=== PATIENT | female | born 1995 | race Caucasian/White ===

== ENCOUNTER 2024-07-20 10:23 | Inpatient (IN) | payer MEDICAID, SELFPAY ==
[2024-07-17 11:37] LABS: Basophils % (Auto) 0 % (0-2.5); Eosinophils # (Auto) 0.1 Thou/mm3 (0.0-0.5); Eosinophils % (Auto) 1 % (0-10); Hematocrit 34.7 % (36.0-46.0); Hemoglobin 11.9 g/dL (12.0-16.0); Immature Granulocytes % (Auto) 1 % (0-0); Immature Granulocytes Auto 0.04 Thou/mm3 (0.00-0.00); Lymphocytes # (Auto) 1.4 Thou/mm3 (1.0-4.8); Lymphocytes % (Auto) 17 % (10-50); Mean Corpuscular HGB Conc 34.3 g/dl (31.0-37.0); Mean Corpuscular Hemoglobin 30.4 pg (25.0-35.0); Mean Corpuscular Volume 89 fL (80-100); Monocytes # (Auto) 0.3 Thou/mm3 (0.0-0.8); Monocytes % (Auto) 3 % (0-12); Neutrophils # (Auto) 6.4 Thou/mm3 (1.8-7.7); Neutrophils % (Auto) 78 % (37-80); Nucleated Red Blood Cell % 0 /100 WBC (0); Platelet Count 223 Thou/mm3 (140-440); RDW Standard Deviation 39.4 fL (36.4-46.3); Red Blood Count 3.91 Miln/mm3 (4.00-5.20); White Blood Count 8.3 Thou/mm3 (3.6-11.0)
[2024-07-17 12:15] LABS: Alanine Aminotransferase 30 U/L (10-49); Albumin, Serum 3.9 gm/dL (3.5-5.0); Albumin/Globulin Ratio 1.5 (1.2-2.2); Alkaline Phosphatase 254 U/L (46-116); Anion Gap 9 (7-16); Aspartate Amino Transferase 22 U/L (0-34); BUN/Creatinine Ratio 12 Ratio (12-20); Bilirubin,Total 0.5 mg/dL (0.3-1.2); Blood Urea Nitrogen 7 mg/dL (9-23); Calcium 9.4 mg/dL (8.3-10.6); Calcium (Corrected) 9.5 mg/dL (8.5-10.1); Chloride 104 mMol/L (98-107); Creatinine (Component) 0.6 mg/dL (0.6-1.3); Globulin 2.6 gm/dL (2.3-3.5); Glucose 118 mg/dL (74-106); Osmolality,Calculated 274 (275-295); Potassium 3.6 mMol/L (3.4-5.1); Sodium 138 mMol/L (136-145); Total Protein 6.5 gm/dL (5.7-8.2); eGFR > 60 See Note
[2024-07-17 12:46] LABS: Syphilis Nonreactive (Nonreactive)
[2024-07-17 13:58] LABS: INR 0.9 (0.9-1.3); Partial Thromboplastin Time 26.4 Seconds (22.0-36.0); Prothrombin Time 10.2 Seconds (9.0-12.2)
[2024-07-20] VITALS (12 sets, daily range): BP systolic 108–132; BP diastolic 69–89; PULSE 79–107; RESP 12–20; TEMP 36.5–36.8; O2SAT 95–100; BMI 29.9
--- NOTE | 2024-07-20 08:11 | ESHP_ITS ---
RE: ROBERTO HERNÁNDEZ : 1995 DATE OF ADMISSION:07/20/2024 HISTORY OF PRESENT ILLNESS: This is a 29-year-old 2 para 1-0-0-1 with due date of 07/26/2024 with intrauterine at 39 weeks and 1 day, who presents for repeat delivery. The patient reports normal movement. She denies any leaking or bleeding. Her care was complicated by an abnormal cell-free DNA test in the first trimester, which suggested inconclusive for sex chromosome aneuploidies. The patient was referred to maternal medicine and the maternal medicine ultrasound showed normal anatomy and a normal male fetus. The maternal chromosome SNP microarray showed a normal 46XX. The patient's was also complicated by white coat hypertension and marijuana use. MEDICATIONS: 1. multivitamin 1 p.o. daily. 2. Aspirin 81 mg 1 p.o. daily. SOCIAL HISTORY: She is . She denies any alcohol or drug use or smoking. PAST MEDICAL HISTORY: Hypothyroidism, however, normal thyroid function tests throughout her . FAMILY HISTORY: Breast cancer and hypertension. OBSTETRIC HISTORY: 09/2022, 40 weeks' delivery, 7 pound 5 ounce female, no complications. PAST SURGICAL HISTORY: delivery in 2022. REVIEW OF SYSTEMS: She denies any chest pain, palpitations, cough, fever, shortness of breath or lower extremity pain. She denies any headache, change in vision or right upper quadrant pain. PHYSICAL EXAMINATION: VITAL SIGNS: Blood pressure is 128/76, heart rate 88, respirations 18, and temperature is 98.2. HEENT: Oropharynx and sclerae are clear. LUNGS: Clear to auscultation bilaterally. HEART: Regular rate and rhythm. ABDOMEN: Gravid term size. Old Pfannenstiel scar noted. PELVIC: Deferred. EXTREMITIES: Nontender. SKIN: No gross rashes or lesions. NEUROLOGIC: No focal deficit. ASSESSMENT: Intrauterine at 39 weeks' gestation, previous delivery, elected to repeat delivery, multiparity, desires voluntary sterilization. PLAN: Repeat delivery and bilateral tubal ligation. Informed consent was obtained. The patient was made aware of the risks, complications, alternatives, and benefits of the proposed procedure and she agrees. She is aware of the failure rate and the increased risk of tubal ectopic gestation if occurs. She is aware that vasectomy has a lower failure rate, but her male partner declines that option. The patient is aware of the reversible methods of control, but she declines those options. DT: 12:51:25 TT: 15:55:00 Ref: [id number] - TID: [id number] MTDD
[2024-07-20] MEDS: METOCLOPRAMIDE INJ 5 MG/ML VIAL 2 ML 10 MG IVP (14:39)
[2024-07-20] MEDS: ceFAZolin/D5W 2 GM IV 2 GM/100 ML BAG IV (14:40)
[2024-07-20] MEDS: FAMOTIDINE INJ 10 MG/ML VIAL 2 ML 20 MG IV (14:40)
--- NOTE | 2024-07-20 15:58 | PD.LDDELS ---
Data (Flynn) Data : 2 Para: 1 Term: 1 : 0 : 0 Delivery Data (Flynn) Labor Data ROM Date: 07/20/24 ROM Time: 15:31 Rupture Type: AROM Amniotic Fluid: Clear Delivery Data EDC: 07/27/24 EDC calculated by:: LMP/early US confirmation Labor Onset Stage 1 Date: 07/20/24 Labor Onset Stage 1 Time: 15 Labor Onset Stage 2 Date: 07/20/24 Labor Onset Stage 2 Time: 15: Delivery Date: 07/20/24 Delivery Time: 15: Placenta Delivery Date: 07/20/24 Placenta Delivery Time: 15 Delivered by: Hussein Sosa Delivery nurse: Galina Alexandre Other staff at delivery: Nursery Nurse Other staff at delivery: KARLA Other staff at delivery: Li Sheridan Other staff at delivery: Eric Smith Delivery Method Delivery: Delivery Type: Repeat Presentation: Vertex Position: OA Anesthesia Type Primary Anesthesia: Spinal Placenta Placenta Delivery: Manual EBL Estimated blood loss (ml): 500 Umbilical Cord Nuchal Cord: x1 Tightly Additional Procedures Bilateral salpingectomy Complications Complications: None Data (Flynn) Data Gender: Male Infant Weight Grams: 3200 1 Minute Total: 9 5 Minute Total: 9
--- NOTE | 2024-07-20 16:04 | ESDS_ITS ---
DS: Providers Provider Date of admission: 07/20/24 10:23 Primary care physician: Physician No Primary/Family Admitting Provider: Hussein Sosa MD Attending Provider on Admission: Husseni Sosa MD Attending Provider on DC: Hussein Sosa MD Discharging Provider: Hussein Sosa MD DS: Diagnosis Problem List Completed Was Problem List Reviewed/Reconciled?: Yes Summary/Hosp Course Peripartum Data Procedures: Procedures Operation Date: 07/20/24 12:45 <No data on this case meets the specified criteria> Time Spent with Patient Time attestation: Total time spent providing and/or coordinating discharge services: Exam Vital Signs Pulse BP 88 119/73 07/20/24 10:38 07/20/24 10:38 Discharge Plan Plan Patient Disposition: HOME (Self Care) Patient condition on transfer: Stable Prescriptions/Referrals Prescriptions/Med Rec: New hydrocodone-acetaminophen 5-325 mg tablet 1 tab PO Q6H MDD 4 PRN (Reason: pain) Qty: 20 0RF ibuprofen 600 mg tablet 600 mg PO Q6H PRN (Reason: pain) Qty: 30 0RF No Action Vitamin 27 mg iron- 800 mcg Tablet 1 tab PO QDAY Referrals: No Primary/Family,Physician [Primary Care Provider] - Patient/Caregiver Discharge Instructions Discharge Activity: activity as tolerated Other Discharge Activity Instructions:: Follow up office 1 weeks. Education Materials: C Section Dc Print Language: Romansh Stand Alone Forms: Vangie Award Info., Patient Portal Info Letter Discharge Order Discharge Orders: Discharge (Routine); Ordered 07/22/24 Ordered By: Hussein Sosa Planned Discharge Date 07/22/24
[2024-07-20] MEDS: OXYTOCIN in NS 20 units 20 UNIT/1,000 ML BAG 125 UNIT IV (16:37)
--- NOTE | 2024-07-20 19:15 | ESOP_ITS ---
RE: ROBERTO HERNÁNDEZ : 1995 DATE OF OPERATION: 07/20/2024 PREOPERATIVE DIAGNOSES: 1. Intrauterine at 39 weeks. 2. Previous delivery, elects to repeat cesarian delivery. 3. Multiparity, desires voluntary sterilization. POSTOPERATIVE DIAGNOSES: 1. Intrauterine at 39 weeks. 2. Previous delivery, elects to repeat cesarian delivery. 3. Multiparity, desires voluntary sterilization. PROCEDURE PERFORMED: Repeat low transverse section via Pfannenstiel skin incision, bilateral salpingectomy. SURGEON: Hussein Sosa DO CUSTOMER SERVICE CASHIER: JENNIFER Bobby ANESTHESIA: Spinal. ANESTHESIOLOGIST: Eric Smith CRNA ESTIMATED BLOOD LOSS: 500 mL. COMPLICATIONS: None. COUNTS: Correct. PATHOLOGY: Left and right fallopian tube. FINDINGS: A live male infant, cephalic presentation, clear amniotic fluid. Apgars 9/9, weight 3200 g, gender is male. Normal-appearing uterus, ovaries and fallopian tubes. DESCRIPTION OF PROCEDURE: After appropriate informed consent was obtained, the patient was made aware of the risks, complications, alternatives and benefits of the proposed procedure. She was taken to the operating room where she underwent induction of spinal anesthesia. She was placed in the dorsal lithotomy position. She was prepped and draped in a usual sterile fashion. A time-out was performed. A Pfannenstiel skin incision was made with scalpel, carried through to the underlying layer of fascia with the Bovie. The fascia was nicked in the midline, incision extended bilaterally with the Bovie. The inferior aspect of the fascia incision was grasped with Danni clamps and elevated. The underlying rectus muscle was dissected off with the Bovie. The rectus muscles were in the midline and the peritoneum identified between two Anglin clamps and entered sharply with the Metzenbaum scissors. The incision was extended superiorly and inferiorly with good visualization of the bladder. The bladder blade was then inserted. The vesicouterine peritoneum was incised transversely and bladder flap created digitally. The bladder blade was reinserted. Low uterine segment incised in transverse fascia with scalpel. The incision was extended bilaterally digitally. The infant's head delivered. The nuchal cord reduced. Mouth and nose suction with bulb suction. Shoulder and body delivered atraumatically. The cord was clamped and cut. The infant sent off to awaiting pediatric staff. Cord blood gases were sent. The placenta was then removed manually. The uterus exteriorized and clear of all clots and debris. The uterus incision was repaired with 1-0 chromic catgut suture in a running and locking fashion. A second layer of same suture was used to imbricate the first layer, obtained excellent hemostasis. The vesicouterine peritoneum was closed with 2-0 chromic catgut suture in running fashion. Attention was then turned to the right fallopian tube, which was grasped with a [place] clamp and Enseal X1 large jaw, a right salpingectomy was performed. Hemostasis was achieved. Attention was then turned to the left fallopian tube, which was grasped with Anabel and Enseal X1 large jaw and the left fallopian tube was removed and hemostasis was achieved. The uterus was returned to the abdomen. The gutters were cleared of all clots and debris. The lower uterine segment was hemostatic. The fundus was firm. The peritoneum was closed with 0 chromic catgut suture in running fashion. Muscle closed with 0 chromic suture in a running fashion. The fascia was closed with #0 Vicryl beginning at each angle and ending in the center in a running fashion. Subcutaneous tissue was irrigated with normal saline solution and closed with 2-0 chromic catgut suture in a running fashion. The skin was closed with 4-0 Monocryl. A Dermabond Prineo dressing was applied. A sterile pressure dressing was applied. She tolerated the procedure well. Counts were correct. DT: 16:00:58 TT: 19:14:00 Ref: [id number] - TID: [id number]
[2024-07-20] MEDS: KETOROLAC INJ 30 MG/ML VIAL IVP (20:03)
[2024-07-20 22:44] LABS: Basophils # (Auto) 0.1 Thou/mm3 (0.0-0.2); Basophils % (Auto) 1 % (0-2.5); Eosinophils # (Auto) 0.1 Thou/mm3 (0.0-0.5); Eosinophils % (Auto) 1 % (0-10); Hematocrit 31.3 % (36.0-46.0); Immature Granulocytes % (Auto) 1 % (0-0); Immature Granulocytes Auto 0.06 Thou/mm3 (0.00-0.00); Lymphocytes % (Auto) 15 % (10-50); Mean Corpuscular HGB Conc 35.1 g/dl (31.0-37.0); Mean Corpuscular Volume 88 fL (80-100); Monocytes # (Auto) 0.5 Thou/mm3 (0.0-0.8); Monocytes % (Auto) 4 % (0-12); Neutrophils # (Auto) 10.1 Thou/mm3 (1.8-7.7); Neutrophils % (Auto) 79 % (37-80); Nucleated Red Blood Cell % 0 /100 WBC (0); Platelet Count 207 Thou/mm3 (140-440); RDW Standard Deviation 38.5 fL (36.4-46.3); Red Blood Count 3.55 Miln/mm3 (4.00-5.20); White Blood Count 12.8 Thou/mm3 (3.6-11.0)
[2024-07-21 00:49] VITALS: BP 117/71; PULSE 79; RESP 15; TEMP 36.7; O2SAT 97
[2024-07-21] MEDS: OXYTOCIN in NS 20 units 20 UNIT/1,000 ML BAG 125 UNIT IV (01:43)
[2024-07-21 04:04] VITALS: BP 112/74; PULSE 75; RESP 14; TEMP 36.4; O2SAT 95
[2024-07-21] MEDS: ACETAMINOPHEN 325 MG TABLET 650 MG PO (06:26)
[2024-07-21 07:50] VITALS: BP 131/78; PULSE 79; RESP 19; TEMP 36.5; O2SAT 97
--- NOTE | 2024-07-21 09:23 | ESPR_ITS ---
RE: ROBERTO HERNÁNDEZ : 1995 DATE OF SERVICE: 07/21/2024 S: Postop day #1, the patient denies any problem or complaints. She is voiding. She is ambulating. She tolerated diet. She is passing flatus. She denies any excessive vaginal bleeding. She denies any dizziness or lightheadedness. She denies any chest pain, palpitations, shortness of breath or lower extremity pain. O: Vital Signs: Blood pressure 112/74, heart rate 75, respirations 14, temperature 97.6, and pulse ox is 95% on room air. Lungs: Clear to auscultation bilaterally. Heart: Regular rate and rhythm. Abdomen: Dressing is dry and intact. Fundus is firm. Extremities: Nontender. Laboratory Data: Hemoglobin pre-delivery is 11.9 and post delivery is 11.0. A: Postop day #1, status post delivery and bilateral salpingectomy. P: Remove dressing. Encouraged ambulation, DC IV, support and possible discharge home tomorrow. DT: 07:07:37 TT: 09:22:00 Ref: [id number] - TID: [id number]
[2024-07-21] MEDS: IBUPROFEN TAB 400 MG TABLET 800 MG PO (17:20)
[2024-07-21 20:00] VITALS: BP 129/86; PULSE 95; RESP 16; TEMP 37.2; O2SAT 96
--- NOTE | 2024-07-21 20:49 | PC.NURSE ---
07/21/241944: Removed wound dressing, pt tolerated well. Incision is asymptomatic, C/D/I.
[2024-07-22] VITALS: BP 122/77; PULSE 86; RESP 16; TEMP 36.8; O2SAT 96
[2024-07-22] MEDS: IBUPROFEN TAB 400 MG TABLET 800 MG PO (06:18)
[2024-07-22 08:22] VITALS: BP 129/77; PULSE 97; RESP 17; TEMP 37.2; O2SAT 98
--- NOTE | 2024-07-22 08:59 | ESPR_ITS ---
RE: ROBERTO HERNÁNDEZ : 1995 DATE OF SERVICE: 07/22/2024 SUBJECTIVE: Postop day #2, the patient denies any problem or complaint. OBJECTIVE: Vital Signs: Stable. Afebrile. Abdomen: Incision clear and intact. Fundus is firm. Extremities: Nontender. ASSESSMENT: Postop day #2, status post delivery. PLAN: Discharge home. Discharge instructions given. Follow up in the office in one week. DT: 06:51:06 TT: 08:58:00 Ref: [id number] - TID: [id number]
--- NOTE | 2024-07-22 10:46 | CHAP ---
Patient was visited by a Spiritual Care Volunteer on 07/22/2024 between 0900 and 1036 and received comfort, encouragement and/or prayer. received a blessing.
== END 2024-07-22 12:40 | disposition home or self-care (01) | DRG 539 ==
LOC: S4SX 11:29 → S4NX 15:20
PROVIDERS: Admitting Provider Specialist; Visit Provider Specialist
PROC: 0UL70ZZ Occlusion of Bilateral Fallopian Tubes, Open Approach (ICD-10-PCS; CPT 59514; principal; 2024-07-20 12:30)
DX: O34.211 Maternal care for low transverse scar from previous cesarean delivery (principal); O16.4 Unspecified maternal hypertension, complicating childbirth; O69.1XX0 Labor and delivery complicated by cord around neck, with compression, not applicable or unspecified; Z37.0 Single live birth; Z3A.39 39 weeks gestation of pregnancy; Z30.2 Encounter for sterilization
CPT/HCPCS: 36415; 80053; 85025; 85610; 85730; 86780; 86850; 86900; 86901; A4649; J0689; J1885; J2274; J2371; J2590; J2765; J3010; J3490; A9270; J1596; J2270